=== PATIENT | male | born 1995 | race Caucasian/White ===

== ENCOUNTER 2017-04-07 09:00 | Emergency (ER) | payer BC ==
[~2017-04-07] VITALS: Wt 118.5 kg
--- NOTE | 2017-04-07 10:52 | RADRPT ---
PROCEDURE: XR right rib series. CLINICAL INDICATION: Right rib pain after fall TECHNIQUE: Three views of the right rib cage are available for review COMPARISON: None available FINDINGS: Cardiomediastinal silhouette is within normal limits. The lungs are clear. There is no pneumothora x. No infiltrate or effusion is seen. The bones are intact. Specifically, there is no evidence of displaced right rib fracture. IMPRESSION: 1. Unremarkable right rib cage x-ray series. RPTAT: AA .Brody Arnold MD, MD Date Time Electronically viewed and signed by .Brody Arnold MD, on 04/07/2017 10:52 .B/
[2017-04-07] MEDS ORDERED: IBUP-1542 PO (10:57)
--- NOTE | 2017-04-07 11:14 | ERD ---
ER Documentation Chief Complaint Date/Time DATE: 04/07/17 TIME: 11:12 Chief Complaint RIB PAIN AFTER PULLING HEAVY STUFF AT WORK HPI 21yo male comes emergency department right-sided chest pain after lifting yesterday and falling back. He states that he was pulling a rope, then he fell backwards on his right side, and since then he has had achy pain is diffuse, moderate, across the right-sided chest wall. He states that there is no pain with rest, he does note pain when he tries to take a deep breath in or out or moves his chest. He has no hemoptysis, shortness of breath. ROS All systems reviewed and are negative except as per history of present illness. Medications Home Meds Active Scripts Ibuprofen* (Motrin*) 600 Mg Tab, 600 MG PO Q6, #30 TAB Prov:REA BHANDARI PA-C 04/07/17 Allergies Allergies: Coded Allergies: No Known Drug Allergies (Verified Allergy, Unknown, 04/07/17) PMhx/Soc Anesthesia Reaction: No Hx Neurological Disorder: No Hx Respiratory Disorders: No Hx Psychiatric Problems: No Hx Miscellaneous Medical Probl: Yes (Testicular CA s/p chemo) Hx Alcohol Use: No Hx Substance Use: No Hx Tobacco Use: No Smoking Status: Never smoker Physical Exam Vitals Vital Signs Date Time Temp Pulse Resp B/P Pulse Ox O2 Delivery O2 Flow Rate FiO2 04/07/17 09:04 97.6 58 17 144/81 98 Physical Exam General: Well-developed, well-nourished. The patient appears in no acute distress. HEENT: Head is normocephalic, atraumatic. No scleral icterus. Neck: Supple. Nontender. Lungs: Clear to auscultation. Normal air movement. Diffuse chest wall tenderness across the right lateral chest wall, there is no crepitus, no bony deformities. Heart: Regular rate and rhythm. S1 and S2 are normal. No murmurs, gallops, or rubs. Abdomen: Nondistended. Nontender. Extremities: No clubbing or cyanosis. Moving extremities x 4. No weakness. Neurologic: Alert and oriented 3. No focal deficits. Normal speech and gait. Skin: Normal turgor. No rash or lesions. Results 24 hrs PROCEDURE: XR right rib series. CLINICAL INDICATION: Right rib pain after fall TECHNIQUE: Three views of the right rib cage are available for review COMPARISON: None available FINDINGS: Cardiomediastinal silhouette is within normal limits. The lungs are clear. There is no pneumothorax. No infiltrate or effusion is seen. The bones are intact. Specifically, there is no evidence of displaced right rib fracture. IMPRESSION: 1. Unremarkable right rib cage x-ray series. RPTAT: AA .Brody Arnold MD, MD Date Time Electronically viewed and signed by .Brody Arnold MD, MD on 2016 10:52 .B/ Procedures/MDM ED course: As this patient was offered pain medication in the emergency department, he kindly declined. MDM: 21-year-old male comes to the ER with right-sided chest wall pain, I believe his physical examination and imaging is consistent with a chest wall muscle strain. There is diffuse tenderness across the chest wall without any specific rib pain. Chest x-ray was also performed, negative for rib fracture, no evidence of pneumothorax. I have advised patient to take ibuprofen for the pain. Departure Diagnosis: Primary Impression: Chest wall muscle strain Condition: Good Patient Instructions: Chest Wall Pain, Costochondritis Additional Instructions: Call your primary care doctor TOMORROW for an appointment during the next 1-2 days.See the doctor sooner or return here if your condition worsens before your appointment time. REA BHANDARI PA-C April 07, 2017 11:14
[2017-04-07] MEDS ORDERED: TRAM50TA2 PO (11:32)
[2017-04-07] MEDS ORDERED: CYCL5TAB PO (11:32)
== END 2017-04-07 11:35 | disposition home or self-care (01) ==
LOC: FTE 09:00
DX: S29.011A Strain of muscle and tendon of front wall of thorax, initial encounter (principal); C62.90 Malignant neoplasm of unspecified testis, unspecified whether descended or undescended; W18.39XA Other fall on same level, initial encounter; Y92.89 Other specified places as the place of occurrence of the external cause
CPT/HCPCS: 71100